=== PATIENT | female | born 1995 | race Caucasian/White ===

== ENCOUNTER 2021-07-05 12:49 | Inpatient (IN) ==
[2021-07-05] MEDS ORDERED: Metoclopramide 10 MG/2 ML VIAL IVP PRN (13:19)
[2021-07-05] MEDS ORDERED: *HR* Nalbuphine 10 MG/ML AMPUL IV PRN (13:19)
[2021-07-05] MEDS ORDERED: Lidocaine 1% 20 ML MDV INFILT PRN (13:19)
[2021-07-05] MEDS ORDERED: Naloxone 0.4 MG/ML INJ IVP PRN ×2 (13:19→14:59)
[2021-07-05] MEDS ORDERED: Azithromycin 500 MG in 0.9 % Sodium Chloride 250 ML IVPB PRN (13:19)
[2021-07-05] MEDS ORDERED: Famotidine 20 MG/2 ML VIAL IVP PRN (13:19)
[2021-07-05] MEDS ORDERED: Ondansetron 4 MG/2 ML VIAL IVP PRN ×2 (13:19→14:59)
[2021-07-05] MEDS: Ringers Solution, Lactated 1,000 ML IVC SCH ×2 (14:00→15:37)
[2021-07-05 14:30] LABS: Basophils # 0.1 K/mcL (0.0-0.2); Basophils % 0.4 %; Eosinophils # 0.1 K/mcL (0.0-0.6); Eosinophils % 1.1 %; Hematocrit 37.1 % (35.3-44.9); Hemoglobin 12.3 g/dL (11.5-15.4); Immature Granulocytes % 0.9 % (0-4); Lymphocytes # 1.8 K/mcL (0.6-4.6); Lymphocytes % 15.8 %; Mean Corpuscular HGB Conc 33.2 g/dL (31.6-35.5); Mean Corpuscular Hemoglobin 28.5 pg (28.0-33.3); Mean Corpuscular Volume 85.9 fL (83.0-100.0); Mean Platelet Volume 10.9 fL (9.4-12.4); Monocytes # 1.6 K/mcL (0.0-1.3); Monocytes % 13.5 %; Neutrophils # 7.9 K/mcL (1.6-8.9); Platelet Count 236 K/mcL (140-400); Red Blood Count 4.32 M/mcL (3.82-4.97); Red Cell Distribution Width 13.8 % (11.5-14.5); Segmented Neutrophils % 68.3 %; White Blood Count 11.6 K/mcL (4.3-11.1)
[2021-07-05] MEDS ORDERED: Ondansetron 4 MG/2 ML VIAL ONE (14:43)
[2021-07-05] MEDS ORDERED: Ropivacaine/PF 0.2% 20 ML VIAL EP ONE (14:59)
[2021-07-05] MEDS ORDERED: EPHEDrine 50 MG/ML VIAL IVP PRN (14:59)
[2021-07-05] MEDS ORDERED: *HR* FentaNYL (PF) 100 MCG/2 ML VIAL EP ONE (14:59)
[2021-07-05] MEDS ORDERED: Epidural Premix (fent/bupiv) 110 ML EP SCH (15:00)
[2021-07-05 15:29] LABS: Amphetamine Screen,Urine Negative ng/mL (Cutoff=1000); Barbiturate Screen,Urine Negative ng/mL (Cutoff=200); Benzodiazepines Screen,Urine Negative ng/mL (Cutoff=200); Cannabinoid Screen,Urine Positive ng/mL (Cutoff = 50); Cocaine Screen,Urine Negative ng/mL (Cutoff= 300); Opiate Screen,Urine Negative ng/mL (Cutoff=300); Phencyclidine Screen,Urine Negative ng/mL (Cutoff=25)
[2021-07-05] MEDS ORDERED: Oxytocin 20 units/ LR 1000 mL 20 UNIT/1,000 ML BAG IVC ONE ×2 (19:20→21:35)
[2021-07-05] MEDS ORDERED: Lanolin 7 G OINT...G. TP PRN (22:10)
[2021-07-05] MEDS ORDERED: Oxytocin 20 units/ LR 1000 mL 20 UNIT/1,000 ML BAG IVC SCH (22:10)
[2021-07-05] MEDS ORDERED: Ondansetron ODT 4 MG TAB.RAPDIS SL PRN (22:10)
[2021-07-05] MEDS ORDERED: Benzocaine/Menthol 56 GM AEROSOL SPRAY TP PRN (22:10)
[2021-07-06] MEDS: Ibuprofen 600 MG TABLET PO SCH ×3 (00:18→22:00)
[2021-07-06] MEDS: Acetaminophen 325 MG TABLET PO SCH ×4 (00:19→22:00)
[2021-07-06] MEDS: Prenatal Vit/FA 1 EACH TABLET PO SCH (10:27)
[2021-07-07] MEDS: Ibuprofen 600 MG TABLET PO SCH ×2 (04:56→13:41)
[2021-07-07] MEDS: Acetaminophen 325 MG TABLET PO SCH ×2 (04:57→13:42)
[2021-07-07 07:08] VITALS: BP 134/84; PULSE 63; TEMP 98; O2SAT 97
[2021-07-07] MEDS: Prenatal Vit/FA 1 EACH TABLET PO SCH (08:32)
== END 2021-07-07 13:50 | disposition home or self-care (01) | DRG 560 ==
LOC: 1NENULAB → 1NENUOBS 07-06 00:55
PROVIDERS: ADMIT Registered Nurse; ATTEND Registered Nurse